=== PATIENT | male | born 1945 | race Caucasian/White ===

== ENCOUNTER → 2020-02-19 | Outpatient (CLI) | payer MEDICARE, MEDICAID | END | disposition home or self-care (01) | LOC: MSC 11:00 | PROVIDERS: ATTEND Anesthesiology | DX: M51.36 Other intervertebral disc degeneration, lumbar region (principal); M51.26 Other intervertebral disc displacement, lumbar region; M47.27 Other spondylosis with radiculopathy, lumbosacral region; M62.830 Muscle spasm of back; M40.299 Other kyphosis, site unspecified; M79.669 Pain in unspecified lower leg; I10 Essential (primary) hypertension ==